=== PATIENT | male | born 1995 | race Caucasian/White ===

== ENCOUNTER 2019-10-26 17:55 | Outpatient (CLI) | payer SELFPAY | END 2019-10-26 17:56 | disposition home or self-care (01) | LOC: COV 17:55 | PROVIDERS: ATTEND Family Medicine | DX: R50.9 Fever, unspecified (principal); R06.02 Shortness of breath; J02.9 Acute pharyngitis, unspecified; R19.7 Diarrhea, unspecified; R43.9 Unspecified disturbances of smell and taste; Z72.0 Tobacco use; Z20.828 Contact with and (suspected) exposure to other viral communicable diseases | CPT/HCPCS: 81599 ==

== ENCOUNTER 2019-11-01 15:25 | Outpatient (CLI) | payer SELFPAY ==
[2019-11-02 10:29] LABS: HIV AG/AB 4TH GEN NON-REACTIVE (NON-REACTIVE)
== END 2019-11-01 15:26 | disposition home or self-care (01) ==
LOC: LAB 15:25
PROVIDERS: ATTEND Internal Medicine
DX: Z20.2 Contact with and (suspected) exposure to infections with a predominantly sexual mode of transmission (principal)
CPT/HCPCS: 36415; 81599; 86592; 87389

== ENCOUNTER 2024-03-13 15:12 | Outpatient (CLI) | payer SELFPAY | END 2024-03-13 23:59 | disposition left against medical advice (07) | LOC: EMS 15:12 | DX: F41.9 Anxiety disorder, unspecified (principal); R00.0 Tachycardia, unspecified; R07.9 Chest pain, unspecified ==